=== PATIENT | male | born 1940 | race Caucasian/White ===

== ENCOUNTER → 2016-10-06 | Outpatient (CLI) | payer OTHER | LOC: FIMAGING 08:26 | PROVIDERS: ATTEND Internal Medicine | DX: J84.9 Interstitial pulmonary disease, unspecified (principal); R59.0 Localized enlarged lymph nodes; I70.0 Atherosclerosis of aorta; J42 Unspecified chronic bronchitis; Z87.891 Personal history of nicotine dependence ==

== ENCOUNTER 2018-07-23 15:00 | Inpatient (IN) | payer OTHER ==
--- NOTE | 2018-07-23 15:17 | EDPHY ---
H & P Stated Complaint: LLE edema and SOB Time Seen by Provider: 07/23/18 15:03 HPI/ROS: CHIEF COMPLAINT: Unilateral leg swelling, shortness of breath HISTORY OF PRESENT ILLNESS: This is a 78-year-old male who presents to the emergency department from his primary care physician office, Dr. Hugo, the primary complaint of hypoxemia and leg swelling. Patient reports that he has had swelling of his left lower extremity for the last 3-4 days. On arrival he seems to be in significant respiratory distress with an O2 sat of 74%. Patient reports that he has pulmonary fibrosis and uses oxygen at night. He states he has had gradually worsening shortness of breath over the last month after he was taken off 1 of his medications. it is a bit difficult to understand if he has had acute worsening of his shortness of breath; he says he is just anxious after being told go to the emergency department. Not anticoagulated except aspirin. No history of DVTs or PEs. No history of atrial fibrillation. Denies fevers or chills, denies chest pain, denies vomiting, diarrhea, urinary complaints, headache, or lightheadedness. Does report getting an influenza vaccination this season REVIEW OF SYSTEMS: The 10 system review of systems was reviewed and is otherwise negative aside from the elements mentioned in the history of present illness and decision making. Please note, review of systems is slightly limited secondary to the patient's clinical condition and significant respiratory distress. PAST MEDICAL HISTORY: Pulmonary fibrosis, uses oxygen at night. SOCIAL HISTORY: Belt Maker is Dr. Gamez, primary care physician Dr. Hugo. VITAL SIGNS Reviewed by me. 172/112, O2 sat 72% on room air with good waveform , respiratory rate 28 with accessory muscle use and retractions. Heart rate 97. Afebrile GENERAL: Thin gentleman, significant respiratory distress, 2-3 word dyspnea. HEENT: Atraumatic. Eyes: No icterus, no injection. Mouth: moist mucous membranes. No erythema or lesions. Neck: supple with no adenopathy. LUNGS: Crackles lower lobes bilaterally, significantly worse on the left with crackles and pleural rubs to the left upper lobe. CARDIAC: Regular rate and rhythm. ABDOMEN: Soft, nontender, nondistended, bowel sounds normal. BACK: No CVA tenderness. EXTREMITIES: No trauma. Left lower extremity: Nonpitting edema over the foot, ankle, lower calf. Range of motion is normal throughout. NEURO: Alert and oriented, grossly nonfocal. SKIN: Slightly cool to the touch, no rash. PSYCHIATRIC: Normal mentation, no agitation. - Medical/Surgical History Other PMH: Idiopathic pulmonary fibrosis, on home O2 at night Constitutional: Initial Vital Signs Temperature (C) 36.4 C 07/23/18 15:07 Heart Rate 97 07/23/18 15:07 Respiratory Rate 28 H 07/23/18 15:07 Blood Pressure 172/112 H 07/23/18 15:07 O2 Sat (%) 72 L 07/23/18 15:07 O2 Delivery Mode Nasal Cannula O2 (L/minute) 10 Allergies/Adverse Reactions: naproxen [From Naprosyn] Allergy (Verified 07/20/10 09:24) Home Medications: Medication Instructions Recorded METFORMIN HCL 500 mg PO BID 07/20/10 Aspirin EC [Aspirin EC 81 mg (*)] 81 mg PO HS 07/23/18 C/E/Zn/Cu/OM3/DHA/EPA/LUT/ZEAX 1 each PO BID 07/23/18 [Preservision Areds 2 Softgel] Lovastatin 40 mg PO HS 07/23/18 Multivitamins [Multivitamin (*)] 1 each PO DAILY 07/23/18 [place]-3 Fatty Acids [Fish Oil 1000 1,000 mg PO DAILY 07/23/18 mg (*)] Medical Decision Making - Diagnostics EKG Interpretation: 12-LEAD EKG: Please see the full report in [facility]. My interpretation: Sinus rhythm, T-wave inversions across the anterior leads, right ventricular hypertrophy. Imaging Results: CXR: Impression: Increased interstitial prominence, which could be related to interstitial lung disease or fluid overload superimposed on underlying emphysema, or other etiologies. CT chest is recommend for further evaluation. Dictated By: Darien Nur MD CT Chest for PE: Impression: 1. No evidence of acute pulmonary embolism with CT findings suggestive of pulmonary hypertension/ right heart failure. 2. Progression of interstitial lung disease in a distribution most suggestive of UIP. No evidence of superimposed airspace pneumonia. 3. Worsening of mediastinal lymphadenopathy which may be reactive, however underlying neoplasm cannot be radiographically excluded. Deya Zabala was notified of these findings by telephone at 5:11 PM on 2018. Dictated By: Ryan Singh MD ED Course/Re-evaluation: 78-year-old male presenting with increased O2 demands and shortness of breath along with unilateral leg swelling. Denies infectious symptomatology. Chest straight demonstrates underlying pulmonary fibrosis pattern with probable consolidation on the left lung field and questionable effusion. EKG: Sinus rhythm, T-wave inversion ST depression anteriorly. Bedside troponin 0.02. Lactic acid 5.0. Severe sepsis declared at 3:40 p.m.. Normal saline begun. Chest x-ray reading from Radiology: Increased interstitial pulmonary fibrosis with left lower lobe consolidation that may represent pneumonia. 4:15 p.m.: Patient's BNP is elevated at 5200. Patient has received a total of 1000 cc of fluid. Will stop fluid at this point while awaiting CT scan of the chest. Suspect a significant portion of the patient's lactic acidosis is secondary to hypoxemia and not to inadequate perfusion from decreased volume status. Repeat lactic acid: 1.9. CT scan of the chest demonstrates no pulmonary embolism and no pneumonia. Influenza negative. Respiratory pathogen panel pending at this time. Sepsis note: 78-year-old male who had presented with extreme hypoxia and chest x-ray demonstrating possible consolidation of the left lower lobe. Patient had not had symptoms of a fever. He did have white count of greater than 12,000 and lactic acid of 5.0. IV fluids were begun, however, patient did not receive a full 30 cc/kilos in light of his CT scan demonstrating no pneumonia and probable worsening pulmonary fibrosis as a cause of the patient's significant hypoxia. Patient's BNP is also elevated at 5200 and he has left lower extremity edema. I believe the patient's significant lactic acidosis was secondary to hypoxia and not secondary to infectious source. Patient did not receive antibiotics in the emergency department and again did not receive a full 30 cc/kilos bolus. Differential Diagnosis: Differential diagnosis for the patient's shortness of breath was considered including but not limited to pulmonary infectious processes, COPD exacerbation, worsening pulmonary fibrosis, pulmonary emboli, pulmonary edema, congestive heart failure, and cardiac causes. Differential diagnosis for the patient's leg swelling was considered including but not limited to cellulitis, hypoalbuminemia, congestive heart failure, cor pulmonale, chronic venous stasis and DVT. Consult/Admit Bed Type: Dr. Kern, [facility] Surg - Data Points Laboratory Results: Laboratory Results 07/23/18 15:15 07/23/18 15:15 Microbiology Results: MICROBIOLOGY 07/23/18 15:15 Blood Blood Culture - Preliminary 07/23/18 15:13 Blood Blood Culture - Preliminary Medications Given: Albuterol/Ipratropium (Duoneb) 3 ml IH Q6HRS [facility] Stop: 01/20/19 00:00 Last Admin: 07/25/18 14:46 Dose: 3 ml Aspirin Buffered (Aspirin Ec) 81 mg PO HS RAMILA Stop: 01/20/19 20:59 Last Admin: 07/24/18 20:11 Dose: 81 mg Enoxaparin Sodium (Lovenox) 40 mg SC DAILY RAMILA Stop: 01/20/19 11:59 Last Admin: 07/25/18 08:29 Dose: 40 mg Furosemide (Lasix Injection) 20 mg IVP BIDDIUR RAMILA Stop: 01/20/19 14:59 Last Admin: 07/25/18 15:09 Dose: 20 mg Levofloxacin/Dextrose (Levaquin 750 Mg (Premix)) 150 mls @ 100 mls/hr IV Q2D RAMILA PRN Reason: Protocol Stop: 08/22/18 18:59 Last Admin: 07/25/18 08:28 Dose: 150 mls Multivitamins/Minerals (Preservision Areds2 Formula) 1 each PO BID RAMILA Stop: 01/20/19 20:59 Last Admin: 07/25/18 08:30 Dose: 1 each Pravastatin Sodium (Pravachol) 40 mg PO HS [facility] Stop: 01/20/19 20:59 Last Admin: 07/24/18 20:11 Dose: 40 mg Discontinued Medications Furosemide (Lasix Injection) 20 mg IVP ONCE ONE Stop: 07/23/18 18:02 Last Admin: 07/23/18 18:31 Dose: 20 mg Sodium Chloride (Ns) 1,900 mls @ 3,800 mls/hr 30 ml/kg infuse over 30 min ( 1900 ml) IV EDNOW ONE PRN Reason: Protocol Stop: 07/23/18 16:07 Last Admin: 07/23/18 15:45 Dose: 1,900 mls Levofloxacin/Dextrose (Levaquin 750 Mg (Premix)) 150 mls @ 100 mls/hr IV DAILY RAMILA PRN Reason: Protocol Stop: 08/22/18 18:59 Last Admin: 07/23/18 19:19 Dose: 150 mls Methylprednisolone Sodium Succinate (Solu-Medrol) 125 mg IVP Q6HRS [facility]IL[facility] Stop: 01/19/19 18:14 Last Admin: 07/25/18 11:41 Dose: 125 mg Point of Care Test Results: Chemistry 07/23/18 15:27 POC Troponin I 0.02 ng/mL ng/mL (0.00-0.08) Departure - Departure Disposition: [facility] Inpatient Acute Condition: Fair
[2018-07-23 15:32] LABS: PLATELET COUNT 256 10^3/uL (150-400)
[2018-07-23] MEDS ORDERED: NS 1,900 ML IV ONE (15:38)
[2018-07-23 15:53] LABS: INR 1.05 (0.83-1.16); PROTIME(PATIENT) 13.3 SEC (12.0-15.0)
[2018-07-23] MEDS ORDERED: IOPAMIDOL (ISOVUE 370) 100 ML BTL IV ONE (15:54)
[2018-07-23] MEDS ORDERED: HYDROmorphONE/DILAUDID 1 MG/ML INJ IVP PRN (17:29)
[2018-07-23] MEDS ORDERED: oxyCODONE IR 5 MG TAB PO PRN (17:29)
[2018-07-23] MEDS ORDERED: ALBUTEROL 3 ML DEYVIAL IH PRN (17:29)
[2018-07-23] MEDS ORDERED: HYDROCODONE/APAP 5/325 TAB PO PRN (17:29)
[2018-07-23] MEDS ORDERED: ONDANSETRON DISINTEGRATING 4 MG TAB PO PRN (17:29)
[2018-07-23] MEDS ORDERED: ONDANSETRON 4 MG/2 ML VIAL IVP PRN (17:29)
[2018-07-23] MEDS ORDERED: ACETAMINOPHEN 325 MG TAB PO PRN (17:29)
[2018-07-23] MEDS ORDERED: PROMETHAZINE HCL 25 MG/ML INJ IVP PRN (17:29)
--- NOTE | 2018-07-23 17:42 | PDGENHP ---
History and Physical - Chief Complaint left leg swelling/sob - History of Present Illness 78 yo M with a PMH of IPF and COPD with chronic nocturnal hypoxia who presents from his PCPs office where he was being evaluated for new onset of left lower extremity swelling. He notes the leg has been swollen for a day or two, it is associated with some change in sensation but no pain or redness. The other leg feels fine. He notes he has also been experiencing progressive shortness of breath for at least the last couple of months. He typically uses oxygen only at night but recently has at times felt short of breath during the day and particularly with exertion and has been using 2-3L frequently during the day and very commonly when exerting himself. He has not had chest pain, fever, cough or increased sputum production. Upon reviewing patients outpatient reports with Dr. Gamez, I noted he had recently been switched from esbriet for his IPF to ofev as he was having loss of appetite attributed to esbriet. Patient states several people have asked him about this supposed new medication but states he was never told to start a new medication, and only discontinued esbriet without starting ofev. Upon arrival to the ER it was noted patient was hypoxic to 72% on RA, a chest CTA was negative for PE or PNA but did show signs of progressive ILD. History Information - Allergies/Home Medication List Allergies/Adverse Reactions: naproxen [From Naprosyn] Allergy (Verified 07/20/10 09:24) Home Medications: LOVASTATIN 80 mg PO DAILY 07/20/10 [Last Taken Unknown] METFORMIN HCL 500 mg PO BID 07/20/10 [Last Taken Unknown] Aspirin 81mg (*) 07/23/18 [Last Taken Unknown] I have personally reviewed and updated: family history, medical history, social history, surgical history - Past Medical History COPD, diabetes type 2 (with peripheral neuropathy), hyperlipidemia Additional medical history: interstitial pulmonary fibrosis--followed by [facility]. chronic nocturnal hypoxia - Surgical History Reports: no pertinent surgical hx - Family History Positive for: non-pertinent - Social History Smoking Status: Former smoker Alcohol Use: Rarely Drug Use: None Additional social history: lives independently Review of Systems Review of Systems: ROS: 10pt was reviewed & negative except for what was stated in HPI & below Physical Exam Physical Exam: Temp Pulse Resp BP Pulse Ox 36.4 C 76 20 163/102 H 99 07/23/18 15:07 07/23/18 17:10 07/23/18 17:10 07/23/18 17:10 07/23/18 17:10 O2 (L/minute) 10 Constitutional: chronically ill appearing, uncomfortable Eyes: PERRL, anicteric sclera Ears, Nose, Mouth, Throat: moist mucous membranes, hearing normal Cardiovascular: regular rate and rhythym, no murmur, rub, or gallop, edema (LLE 2+) Respiratory: reduced air movement, expiratory wheeze, inspiratory crackles, respiratory distress Gastrointestinal: normoactive bowel sounds, soft, non-tender abdomen Genitourinary: no bladder tenderness Skin: warm, normal color Musculoskeletal: no muscle tenderness Neurologic: AAOx3 Psychiatric: interacting appropriately, not anxious, not encephalopathic Lab Data & Imaging Review 07/23/18 15:15 07/23/18 15:15 WBC 12.81 10^3/uL (3.80-9.50) H 07/23/18 15:15 RBC 4.65 10^6/uL (4.40-6.38) 07/23/18 15:15 Hgb 13.5 g/dL (13.7-17.5) L 07/23/18 15:15 Hct 44.2 % (40.0-51.0) 07/23/18 15:15 MCV 95.1 fL (81.5-99.8) 07/23/18 15:15 MCH 29.0 pg (27.9-34.1) 07/23/18 15:15 MCHC 30.5 g/dL (32.4-36.7) L 07/23/18 15:15 RDW 14.6 % (11.5-15.2) 07/23/18 15:15 Plt Count 256 10^3/uL (150-400) 07/23/18 15:15 MPV 11.8 fL (8.7-11.7) H 07/23/18 15:15 Neut % (Auto) 76.3 % (39.3-74.2) H 07/23/18 15:15 Lymph % (Auto) 14.9 % (15.0-45.0) L 07/23/18 15:15 Smyth % (Auto) 7.3 % (4.5-13.0) 07/23/18 15:15 Eos % (Auto) 0.6 % (0.6-7.6) 07/23/18 15:15 Baso % (Auto) 0.4 % (0.3-1.7) 07/23/18 15:15 Nucleat RBC Rel Count 0.0 % (0.0-0.2) 07/23/18 15:15 Absolute Neuts (auto) 9.78 10^3/uL (1.70-6.50) H 07/23/18 15:15 Absolute Lymphs (auto) 1.91 10^3/uL (1.00-3.00) 07/23/18 15:15 Absolute Monos (auto) 0.93 10^3/uL (0.30-0.80) H 07/23/18 15:15 Absolute Eos (auto) 0.08 10^3/uL (0.03-0.40) 07/23/18 15:15 Absolute Basos (auto) 0.05 10^3/uL (0.02-0.10) 07/23/18 15:15 Absolute Nucleated RBC 0.00 10^3/uL (0-0.01) 07/23/18 15:15 Immature Gran % 0.5 % (0.0-1.1) 07/23/18 15:15 Immature Gran # 0.06 10^3/uL (0.00-0.10) 07/23/18 15:15 PT 13.3 SEC (12.0-15.0) 07/23/18 15:15 INR 1.05 (0.83-1.16) 07/23/18 15:15 APTT 28.1 SEC (23.0-38.0) 07/23/18 15:15 D-Dimer 2.30 ug/mLFEU (0.00-0.50) H 07/23/18 15:15 VBG Lactic Acid 1.9 mmol/L (0.7-2.1) 07/23/18 16:25 Sodium 138 mEq/L (135-145) 07/23/18 15:15 Potassium 5.4 mEq/L (3.5-5.2) H 07/23/18 15:15 Chloride 105 mEq/L (97-110) 07/23/18 15:15 Carbon Dioxide 19 mEq/l (22-31) L 07/23/18 15:15 Anion Gap 14 mEq/L (6-14) 07/23/18 15:15 BUN 26 mg/dL (7-23) H 07/23/18 15:15 Creatinine 1.2 mg/dL (0.7-1.3) 07/23/18 15:15 Estimated GFR 59 07/23/18 15:15 Glucose 114 mg/dL (70-100) H 07/23/18 15:15 Calcium 8.9 mg/dL (8.5-10.4) 07/23/18 15:15 Total Bilirubin 1.2 mg/dL (0.1-1.4) 07/23/18 15:15 POC Troponin I 0.02 ng/mL (0.00-0.08) 07/23/18 15:27 NT-Pro-B Natriuret Pep 5820 pg/mL (0-450) H 07/23/18 15:15 Nasal Influenza A PCR NEGATIVE FOR FLU A (NEGATIVE) 07/23/18 15:40 Nasal Influenza B PCR NEGATIVE FOR FLU B (NEGATIVE) 07/23/18 15:40 Visualized and Interpreted Chest x-ray results: Yes Chest X-Ray results: other (worsening ILD) Visualized and Interpreted imaging results: Yes Interpretation: CTA: no PE/ no PNA, worsening interstitial lung disease, worsening lymphadenopathy Visualized and Interpreted EKG results: Yes EKG Interpretation: Positive for: normal sinsus rhythm, ST depression ( secondary repol abnormality) Assessment & Plan Assessment: Acute respiratory failure (Acute) 78 yo m with hx of COPD, IPF and chronic hypoxic respiratory failure presenting with LLE edema and acute on chronic respiratory failure # acute on chronic hypoxic respiratory failure: presenting with o2 sats of 72% on RA and associated respiratory distress, improved to high 90s now on 10L oxymask. CT without PE or clear e/o PNA but does appear to have worsening ILD. Discussed with patients outpatient pulmonary physician, Dr. Gamez, who recommends treating with lasix and steroids for tonight, and looking for other etiologies as below. Resp PCR pending, blood cultures pending # IPF: patient has inadvertently been off of medications since May (esbriet discontinued but patient did not start ofev as planned, discussed with pulmonary who thinks this is unlikely to be contributing as disease progression with this is typically slow and meds are only initiated in order to further slow progression. He recommends holding off on initiation of ofev until discharge. # copd: suspect component of acute exacerbation contributing, steroids, duonebs shruthi and albuterol prn as well as abx initiated # lower extremity edema: asymmetric, will get LLE US, echo in am given elevated BNP and 1 dose of lasix tonight as above # ? bronchopneumonia: no e/o airspace pna on CT but difficult to exclude bronchopneumonia given concurrent SIRS/sepsis as next--blood cultures pending, will start levofloxacin for now # sirs/? sepsis: patient with mildly elevated wbc and tachypnea on arrival, lactate drawn in ER and elevated at 5 (down to 1.9 post fluid)--given his sxs and presentation suspicion is that elevated lactate is not related to sepsis but more likely volume depletion but will start abx for now, check prolactin, repeat cbc in am, cultures and resp pcr pending. HD stable with BP slightly high. # DM2: will start SSI # abnormal ecg: not clearly ischemic, no olds to compare, no c/o chest pain, monitoring on tele, serial trops # IP status, will likely require > 48 hours stay for eval/mgmt of above Patient new to my care. Old records reviewed and summarized as above. Care plan reviewed with ER doctor and pulmonary MD as above.
[2018-07-23] MEDS ORDERED: FUROSEMIDE 20 MG/2 ML VIAL IVP ONE (18:01)
[2018-07-23] MEDS ORDERED: FUROSEMIDE 20 MG/2 ML VIAL ONE (18:23)
[2018-07-23] MEDS ORDERED: methylPREDNISolone SOD SUCC 125 MG/2 ML VIAL ONE (18:28)
[2018-07-23] MEDS: methylPREDNISolone SOD SUCC 125 MG/2 ML VIAL IVP SCH (18:29)
[2018-07-23] MEDS ORDERED: levOFLOXACIN 500 MG/DEXTROSE/100 ML BAG IV ONE (19:15)
[2018-07-23] MEDS ORDERED: levOFLOXACIN 750 MG/DEXTROSE/150 ML BAG IV ONE (19:18)
[2018-07-23] MEDS: IPRATROPIUM/ALBUTEROL 3 ML DEYVIAL IH SCH (23:49)
--- NOTE | 2018-07-23 23:56 | CPEKG ---
Test Reason : OPEN Blood Pressure : / mmHG Vent. Rate : 082 BPM Atrial Rate : 082 BPM P-R Int : 181 ms QRS Dur : 106 ms QT Int : 406 ms P-R-T Axes : 060 117 -59 degrees QTc Int : 475 ms Sinus rhythm Probable left atrial enlargement Probable RVH w/ secondary repol abnormality Confirmed by Deya Zabala ([id number]) on 07/23/2018 11:55:58 PM Referred By: Deya Zabala Confirmed By:Deya Zabala
[2018-07-24] MEDS: methylPREDNISolone SOD SUCC 125 MG/2 ML VIAL IVP SCH ×4 (00:47→17:58)
[2018-07-24 04:53] LABS: PLATELET COUNT 168 10^3/uL (150-400)
[2018-07-24] MEDS: IPRATROPIUM/ALBUTEROL 3 ML DEYVIAL IH SCH ×4 (05:22→23:09)
[2018-07-24] MEDS ORDERED: guaiFENesin/CODEINE PHOS 10 ML UDCUP PO PRN (10:48)
--- NOTE | 2018-07-24 12:29 | ASMTCMCOM ---
CM Note CM Note Notes: Pt was admitted with hypoxia, possible CHF, Anastasia CARTER. PT/OT evals pending. Cardiology following. Pt lives with his in [place]. CM will follow for any d/c needs. D/C plan: TBD Date Signed: 07/24/2018 12:29 PM Electronically Signed By:YANE Cage
[2018-07-24] MEDS: ENOXAPARIN 40 MG/0.4 ML SYR SC SCH (12:56)
[2018-07-24] MEDS: FUROSEMIDE 20 MG/2 ML VIAL IVP SCH (14:24)
--- NOTE | 2018-07-24 15:21 | HOSPPROG ---
Hospitalist Progress Note Assessment/Plan: * Acute on Chronic respiratory failure -acute IFP flare vs. other (PNA vs. CHF) -was 85% on 10L, now holding good sats on 5L * IPF - possible acute flare -IV solumedrol -off Esbriet, did not start Ofev as recommended -d/w Dr. Dias - pulmonary to consult * COPD exacerbations -steroids, nebs * Acute on chronic diastolic CHF -IV lasix * Possible PNA -Levaquin * Elevated lactate -may have been due to hypoxia * DM II Subjective: Still SOB, severe cough is most bothersome Objective: Vital Signs Temp Pulse Resp BP Pulse Ox 36.3 C 76 20 121/72 H 96 07/24/18 14:57 07/24/18 14:57 07/24/18 14:57 07/24/18 14:57 07/24/18 14:57 Laboratory Results 07/24/18 03:05 07/24/18 03:05 07/23/18 07/24/18 07/25/18 05:59 05:59 05:59 Intake Total 2900 450 Output Total 575 550 Balance 2325 -100 PT 13.3 SEC (12.0-15.0) 07/23/18 15:15 INR 1.05 (0.83-1.16) 07/23/18 15:15 CT chest reviewed - looks like progression of IPF CXR viewed, my personal interpretation is - bilateral infiltrate L>R - Physical Exam Constitutional: appears nourished, not in pain, chronically ill appearing, other (on face mask) Cardiovascular: regular rate and rhythym, no murmur, rub, or gallop Respiratory: inspiratory crackles, No expiratory wheeze, No rhonchi Gastrointestinal: normoactive bowel sounds, soft, non-tender abdomen, no palpable masses Skin: no rashes or abrasions, no fluctuance, no induration Neurologic: AAOx3, sensation intact bilaterally Psychiatric: interacting appropriately, not anxious, not encephalopathic, thought process linear ICD10 Worksheet Patient Problems: Problems Problem Status Onset Acute respiratory failure Acute
--- NOTE | 2018-07-24 15:23 | PDMN ---
Medical Necessity Medical necessity: Pt meets IP criteria per MD & MCG PG-RF Respiratory Failure; est los >2 mn for eval/tx of acute on chronic hypoxic respiratory failure (72% on RA), LLE edema, abnormal ECG, elevated lactate & BNP r/t possible CHF, sepsis /SIRS or bronchopneumonia; requiring further workup/monitoring, respiratory supportive care, IV Lasix, IV Solu-Medrol & IV abx; hx COPD, diabetes, pulmonary fibrosis; per H&P & order 07/23/18
[2018-07-24] MEDS: PRESERVISION AREDS2 FORMULA EYE VIT 1 EACH PO SCH (20:11)
[2018-07-24] MEDS: ASPIRIN EC 81 MG TAB PO SCH (20:11)
[2018-07-24] MEDS: PRAVASTATIN SODIUM 40 MG TAB PO SCH (20:11)
[2018-07-25] MEDS: methylPREDNISolone SOD SUCC 125 MG/2 ML VIAL IVP SCH ×3 (00:01→11:41)
[2018-07-25] MEDS: IPRATROPIUM/ALBUTEROL 3 ML DEYVIAL IH SCH ×4 (05:13→20:28)
[2018-07-25] MEDS: FUROSEMIDE 20 MG/2 ML VIAL IVP SCH ×2 (08:29→15:09)
[2018-07-25] MEDS: ENOXAPARIN 40 MG/0.4 ML SYR SC SCH (08:29)
[2018-07-25] MEDS: PRESERVISION AREDS2 FORMULA EYE VIT 1 EACH PO SCH ×2 (08:30→21:22)
--- NOTE | 2018-07-25 12:44 | ASMTCMCOM ---
CM Note CM Note Notes: 07/25/2018 Case Management Note Met w/pt and Precious [phone] and stepdaughter Jo to discuss d/c needs. PT recommending home care. Pt agreeable. Provided home care agency list. Pt requested [facility]. Notified [facility] on phone and allscripts. Transitional Care to follow pt. Case Management d/c poc: [facility] RN PT Case Management to follow. Date Signed: 07/25/2018 12:44 PM Electronically Signed By:Vanessa rOo RN
--- NOTE | 2018-07-25 13:31 | HOSPPROG ---
Hospitalist Progress Note Assessment/Plan: * Acute on Chronic respiratory failure -acute IFP flare vs. other (PNA vs. CHF) -was 85% on 10L, now improving * IPF - possible acute flare -change to Prednisone -off Esbriet, did not start Ofev as recommended -d/w Dr. Dias - pulmonary to consult * COPD exacerbations -steroids, nebs * Acute on chronic diastolic CHF -IV lasix * Possible PNA -Levaquin * Elevated lactate -may have been due to hypoxia * DM II Plan: cont diuretics cont abx for now, check pc change IV steroids to PO Lovenox for DVT proph Subjective: no cp. still with some sob but better. edema has improved Objective: Vital Signs Temp Pulse Resp BP Pulse Ox 35.9 C L 86 22 H 115/68 93 07/25/18 11:20 07/25/18 11:20 07/25/18 11:20 07/25/18 11:20 07/25/18 11:20 Laboratory Results 07/24/18 03:05 07/25/18 03:08 07/24/18 07/25/18 07/26/18 05:59 05:59 05:59 Intake Total 2900 1520 Output Total 575 1850 875 Balance 2325 -330 -875 PT 13.3 SEC (12.0-15.0) 07/23/18 15:15 INR 1.05 (0.83-1.16) 07/23/18 15:15 - Physical Exam Constitutional: no apparent distress Eyes: PERRL, EOMI Ears, Nose, Mouth, Throat: moist mucous membranes, hearing normal Cardiovascular: regular rate and rhythym, No edema Respiratory: reduced air movement, rhonchi Gastrointestinal: normoactive bowel sounds, soft, non-tender abdomen Skin: warm Musculoskeletal: generalized weakness Neurologic: AAOx3 Psychiatric: interacting appropriately, not anxious, not encephalopathic Lymph, Heme, Immunologic: No petechiae ICD10 Worksheet Patient Problems: Problems Problem Status Onset Acute respiratory failure Acute Chronic Disease Mgmt/Transitional care Acute
--- NOTE | 2018-07-25 15:37 | ECHO ---
[email or web address] [address] [address] Main: [phone] Echocardiography Examination Transthoracic Name: ALIRIO CRANDALL MR#: [id number] Study Date: 07/24/2018 Study Time: 10:02 AM Date of : 1940 Age: 78 year(s) Height: 177.8 cm (70 in.) Weight: 64.41 kg (142 lb.) BSA: 1.8 m2 Gender: Male Examination: Echo Indication: CHF, elevated BNP Image Quality: Contrast: Requested by: Destiny Guerrier BP: 156 mmHg/89 mmHg Heart Rate: 76 bpm Rhythm: Indication: CHF, elevated BNP Procedure Staff Referring Physician: Casing Cooker: Sohail Melissa RDCS Reading Physician: John Jones MD Requesting Provider: Ordering Physician: Destiny Guerrier Indication: CHF, elevated BNP Measurements Chambers AV/MV Label Value Normal Value Label Value Normal Value IVSd, 2D 1.3 cm (0.6cm - 1.1cm) AV Opening, MM 1.6 cm LVDd, 2D 4.1 cm (4.2cm - 5.9cm) AV PGmax 5 mmHg LVDs, 2D 2.6 cm (2.1cm - 4cm) AV Vmax, Caliper 1.15 m/s (1m/s - 1.7m/s) LVEF, 2D 67 % (54% - 74%) MV A Vmax 0.96 m/s LVOT PGmax 3 mmHg MV E' lateral 0.06 m/s LVOT Vmax 0.85 m/s (0.7m/s - 1.1m/s) MV E' mean 0.06 m/s LVPWd, 2D 1.1 cm (0.6cm - 1cm) MV E' septal 0.05 m/s RVDd, 2D 6.2 cm (1.9cm - 3.8cm) MV E Vmax 0.56 m/s TAPSE 1.9 cm MV E/A 0.58 LA Area, A2C 18.2 cm2 (0cm2 - 20cm2) MV E/E' lateral 8.8 LA Volume, A2C 47 ml (18ml - 58ml) MV E/E' mean 10.18 RA Area 39 cm2 MV E/E' septal 12.2 (0.45 - 1.25) Additional Vessels TV/PV Label Value Normal Value Label Value Normal Value AoRoot, MM 3.1 cm (2.2cm - 3.7cm) RA Pressure 10 mmHg RVSP 64 mmHg TR Pmax 54 mmHg TR Vmax 3.69 m/s Patient: ALIRIO CRANDALL Study Date: 07/24/2018 Page 1 of 2 10:02 AM Conclusions Left ventricle is normal in size with preserved left ventricular systolic function. There are no ischemic appearing wall motion abnormalities. The interventricular septum is "D" shaped in systole consistent with right ventricular pressure overload. The right ventricle is severely dilated with severely reduced RV systolic function. The right atrium is severely dilated. Valvular morphology is normal. There is moderate tricuspid regurgitation with a moderately elevated estimated RVSP at 64 mmHg. Findings Left Ventricle: Normal global systolic left ventricular function. There is mild concentric left ventricular hypertrophy. There is no regional wall motion abnormalities. Doppler parameters are consistent with abnormal left ventricular relaxation (Grade 1 diastolic dysfunction). Right Ventricle: Severely dilated right ventricle. There is abnormal septal motion with diastolic flattening suggestive of RV volume/pressure overload. . Left Atrium: The left atrium is normal in size. Right Atrium: The right atrium is severely dilated. Mitral Valve: No mitral regurgitation. No mitral valve stenosis. Aortic Valve: No aortic valve regurgitation. There is no aortic stenosis. Tricuspid Valve: Moderate to severe tricuspid regurgitation. Tricuspid Valve Measurements Right Ventricular systolic pressure is measured at 64 mmHg. Pulmonic Valve: No significant pulmonic valve regurgitation is evident. Aorta: The aortic root size in M-mode measures 3.1 cm. Aorta Measurements AoRoot, MM is 3.1 cm. Pericardium: No pericardial effusion. Exam Details Procedure Ordered: Echo (No Signature Object) Patient: ALIRIO CRANDALL Study Date: 07/24/2018 Page 2 of 2 10:02 AM [id number]
--- NOTE | 2018-07-25 16:52 | SOAPPROG ---
SOAP Progress Note Assessment/Plan: Assessment: Interstitial lung disease. Presumably IPF. Clear worsening on CT scan compared to 2017. Spirometry is down but only by 450 cc. Pirfenidone was stopped mid May secondary to weight loss and GI side effects. OFEV was not started (hard drug to start, need to work with drug company and insurance, need prior approval, etc.). Steroids may be of benefit. Got Solu-Medrol on an admission. Will start prednisone. COPD. Presumably he has this along with some emphysema in addition to honeycombing from ILD. However, this is difficult to document and on his pulmonary function studies in January he had no obstruction and no reversibility. A COPD exacerbation could be playing a role. On bronchodilator therapies. These will be continued. Prednisone for ILD may have benefit as well for the COPD. Hypoxemia/dyspnea. Secondary to issues as outlined above. Type 2 diabetes. On metformin. Glucoses may become significantly worse with prednisone. Will follow. Edema: Improved Lasix. No evidence of DVT. Secondary pulmonary hypertension may be playing a role. Plan: Start prednisone at 60 mg per day. Continue duo nebs. Switch levofloxacin to oral. Continue lasix for now but likely go to lower dose orally tomorrow. Will check cardiac echo for right heart function and pressures. Continue ambulation and bronchopulmonary therapies. Follow laboratory. Subjective: Feels better. Less short of breath. Denies pain. Still notes desaturations with ambulation. Objective: Vital Signs Temp Pulse Resp BP Pulse Ox 36.1 C 85 22 H 123/74 H 91 L 07/25/18 15:43 07/25/18 15:43 07/25/18 15:43 07/25/18 15:43 07/25/18 15:43 Laboratory Results 07/24/18 03:05 07/25/18 03:08 07/24/18 07/25/18 07/26/18 05:59 05:59 05:59 Intake Total 2900 1520 860 Output Total 575 7510 1475 Balance 2325 -330 -615 PT 13.3 SEC (12.0-15.0) 07/23/18 15:15 INR 1.05 (0.83-1.16) 07/23/18 15:15 Forced vital capacity today: 2.55 L. In January 2018 this was 3.0 L. FEV1 down as well. Physical Exam - Physical Exam General Appearance: alert, no apparent distress, thin EENT: PERRL/EOMI, other (Nasal cannula in place at 4 L) Neck: normal inspection (No JVD) Respiratory: decreased breath sounds, rales (Bibasilar rales persist, no change) , No rhonchi, No wheezing Cardiac/Chest: regular rate, rhythm, No gallop Abdomen: normal bowel sounds, non-tender, soft Skin: normal color, warm/dry Extremities: pedal edema (Trace +, left greater than right) Neuro/Psych: no motor/sensory deficits, No cognition abnormalities ICD10 Worksheet Patient Problems: Problems Problem Status Onset Acute respiratory failure Acute Chronic Disease Mgmt/Transitional care Acute
[2018-07-25] MEDS: predniSONE 20 MG TAB PO SCH (17:10)
--- NOTE | 2018-07-25 18:08 | GCON ---
[f rep st] CONSULTATION PULMONARY CONSULTATION DATE OF CONSULTATION: 07/25/2018 REASON FOR CONSULTATION: Dyspnea, hypoxemia, ILD/IPF, COPD. HISTORY: The patient is a very pleasant 78-year-old gentleman who is known to our office. He is followed by Dr. Gamez for COPD and idiopathic pulmonary fibrosis. He was last seen on June 05. He was doing relatively well at that time. Room air saturations at rest were reportedly 90%. He had lost weight associated with treatment for his IPF with pirfenidone. This was stopped. Nintedanib (Ofev) was ordered but he has not started this. His last pulmonary function studies were done in January of 2018. Vital capacity was 2.97, 67% of predicted, with an FEV1 of 2.29 L, 69% of predicted. The ratio was 77%. There was no response to bronchodilator. FRC was normal, DLCO low normal at 84% of predicted. This was felt to be consistent with moderate restrictive disease associated with his IPF. Over a number of days prior to this admission on 07/23, he had been increasingly short of breath during the day and had been using oxygen during the day more than he had in the past. He had no wheezing, fevers, cough, or mucus. He presented to his primary care physician with increased lower extremity edema. He was found to be hypoxemic. It was recommended that he come to the emergency department for evaluation. Ultrasound of the lower extremity was negative. A CTA was negative for thromboembolic disease. There was no evidence of pneumonia. Compared to a 2017 CT, his idiopathic pulmonary fibrosis had progressed. He was admitted to the PCU. He has been treated with oxygen at 5-6 L. He is receiving Lasix 20 mg b.i.d., empiric Levaquin. He is not currently on steroids. He did receive Solu-Medrol for a few doses initially in his hospital course. PAST MEDICAL HISTORY: Remarkable for type 2 diabetes and hyperlipidemia, COPD secondary to previous smoking. He may have a component of emphysema as well. SOCIAL HISTORY: I believe the patient is , lives independently. He was a previous smoker. Alcohol is negative. FAMILY HISTORY: Negative/noncontributory. REVIEW OF SYSTEMS: A 10-point review of systems is negative except as noted in the HPI and Past Medical History. PHYSICAL EXAMINATION: GENERAL: Reveals a thin gentleman who is sitting up in the chair, oxygen in place. He is in no distress. Oxygen is in place at 5 L. Saturations are in the low 90s. HEENT: Unremarkable for lymphadenopathy or thyromegaly. There is no jugular venous distention. CHEST: Reveals decreased breath sounds and excursions bilaterally. Bilateral rales are present. There are no significant wheezes. There is no congestion, no rhonchi. HEART: Regular in rate and rhythm. A soft systolic murmur is present. There are no obvious gallops. P2 is increased. ABDOMEN: Soft, nontender. Bowel sounds are present. There is no organomegaly. EXTREMITIES: Remarkable for trace/plus edema on the right, 1+ edema on the left. Compression stockings are in place. NEUROLOGIC: Unremarkable/normal. DATABASE: CT scan of the chest is as outlined above, showing progressive interstitial lung disease with honeycombing and fibrosis. A component of emphysema appears to be present. LABORATORY: White blood cell count is 3600, hematocrit 38, platelets are normal. PT and PTT are normal. Venous lactate on admission was 5, repeat 1.9. Sodium is 135, potassium 4.5, BUN 31, with a creatinine 1.1, glucose 159, calcium 8.1. Liver function studies are normal. Troponins have been negative. BNP is elevated at 5280. Influenza A/B negative. Respiratory panel is negative. Blood cultures are negative to date. ASSESSMENT/PLAN: 1. Shortness of breath. Increased oxygen requirements. This does appear to be secondary to the patient's underlying idiopathic pulmonary fibrosis. This has been progressive over the last couple years despite therapy with pirfenidone. This was recently discontinued, and he has been started on nintedanib. Both these drugs, although acting differently, do the same thing in that they slow, but do not stop, the progression of idiopathic pulmonary fibrosis. Pirfenidone is often associated with gastrointestinal side affects. Nintedanib can be as well and could be problematic if he starts this. The patient was given Solu- Medrol initially during this hospitalization. It is unclear if this had any benefit. It would seem to be reasonable to continue a short course of steroids for now to see if this results in improvement in his hypoxemia and dyspnea. Levaquin was started. There is no definite evidence of a respiratory infection, however, 5 days will be completed. This can be changed to oral. 2. Peripheral edema. The patient did present with increasing lower extremity edema, left greater than right. There is no evidence of deep vein thrombosis or pulmonary embolic disease. This may be related to right heart dysfunction and elevated right ventricular systolic pressures. A cardiac echo will be obtained. 3. Chronic obstructive pulmonary disease. The patient did smoke cigarettes in the past and likely does have a component of chronic obstructive pulmonary disease and emphysema. However, this is difficult to document by pulmonary function testing at this time as his interstitial lung disease is more predominant. Albuterol will be continued. Current therapies will be continued. Steroids, prednisone at 60 mg, will be added to his regimen for now. Lasix will be continued. Levaquin will be continued, but changed to oral. Spirometry will be requested. Cardiac echo will be obtained. Further plans and recommendations will be made based on his progress over the next 24 to 48 hours. /[id number]/MODL MTDD
[2018-07-25] MEDS: PRAVASTATIN SODIUM 40 MG TAB PO SCH (21:22)
[2018-07-25] MEDS: ASPIRIN EC 81 MG TAB PO SCH (21:22)
[2018-07-26 04:31] LABS: PLATELET COUNT 162 10^3/uL (150-400)
[2018-07-26] MEDS: IPRATROPIUM/ALBUTEROL 3 ML DEYVIAL IH SCH ×4 (05:44→20:13)
[2018-07-26] MEDS: ENOXAPARIN 40 MG/0.4 ML SYR SC SCH (09:02)
[2018-07-26] MEDS: FUROSEMIDE 20 MG/2 ML VIAL IVP SCH ×2 (09:02→14:25)
[2018-07-26] MEDS: predniSONE 20 MG TAB PO SCH (09:03)
[2018-07-26] MEDS: PRESERVISION AREDS2 FORMULA EYE VIT 1 EACH PO SCH ×2 (09:03→19:53)
[2018-07-26] MEDS ORDERED: D50W 25 GM/50 ML SYR IVP PRN (09:49)
[2018-07-26] MEDS: INSULIN LISPRO 100 UNIT/ML SC SCH ×2 (12:12→17:16)
--- NOTE | 2018-07-26 15:21 | HOSPPROG ---
Hospitalist Progress Note Assessment/Plan: * Acute on Chronic respiratory failure -acute IFP flare vs. other (PNA vs. CHF) -was 85% on 10L, now improving * IPF - possible acute flare -Prednisone -off Esbriet, did not start Ofev as recommended -d/w Dr. Dias - pulmonary is following * COPD exacerbation -steroids, nebs * Acute on chronic diastolic CHF -IV lasix, holding per below * Possible PNA -Levaquin to be stopped today * Elevated lactate -may have been due to hypoxia * DM II Plan: He has received 2 doses of IV diuretics today. Volume status appears better. BUN has increased. Will hold further diuretics are determine need for additional in the a.m. Will stop abx, PC noted to be negative cont PO steroids at Prednisone 60mg daily Lovenox for DVT proph Subjective: feels better, but still with LERMA. Still on 4-5 Liters O2 Objective: Vital Signs Temp Pulse Resp BP Pulse Ox 36.4 C 74 17 144/89 H 89 L 07/26/18 11:55 07/26/18 11:55 07/26/18 11:55 07/26/18 11:55 07/26/18 13:15 Laboratory Results 07/26/18 03:02 07/26/18 03:02 07/25/18 07/26/18 07/27/18 05:59 05:59 05:59 Intake Total 1520 1110 360 Output Total 1850 1955 1800 Balance -330 -845 -1440 PT 13.3 SEC (12.0-15.0) 07/23/18 15:15 INR 1.05 (0.83-1.16) 07/23/18 15:15 - Physical Exam Constitutional: no apparent distress Eyes: PERRL, EOMI Ears, Nose, Mouth, Throat: moist mucous membranes, hearing normal Cardiovascular: regular rate and rhythym, No edema Respiratory: no respiratory distress, reduced air movement Gastrointestinal: normoactive bowel sounds, soft, non-tender abdomen Skin: warm Neurologic: AAOx3 Psychiatric: interacting appropriately, not anxious, not encephalopathic Lymph, Heme, Immunologic: No petechiae ICD10 Worksheet Patient Problems: Problems Problem Status Onset Acute respiratory failure Acute Chronic Disease Mgmt/Transitional care Acute
--- NOTE | 2018-07-26 18:47 | SOAPPROG ---
SOAP Progress Note Assessment/Plan: Assessment: Interstitial lung disease. Presumably IPF. Clear worsening on CT scan compared to 2017. Spirometry is down but only by 450 cc. Pirfenidone was stopped mid May secondary to weight loss and GI side effects. OFEV was not started (hard drug to start, need to work with drug company and insurance, need prior approval, etc.). Steroids may be of benefit, prednisone at 60 started 07/25. Got Solu-Medrol on an admission. COPD. Presumably he has this along with some emphysema in addition to honeycombing from ILD. However, this is difficult to document and on his pulmonary function studies in January he had no obstruction and no reversibility. A COPD exacerbation could be playing a role. On bronchodilator therapies. These will be continued. Prednisone for ILD may have benefit as well for his COPD. Pulmonary hypertension with right ventricular dysfunction. This is secondary to his underlying pulmonary disease. Right ventricular systolic pressure at 65. This certainly is playing a role in his increasing dyspnea as well. Maintaining oxygen saturations 88% or above is indicated. There is no evidence of pulmonary embolic disease on CTA this admission. Hypoxemia/dyspnea. Secondary to issues as outlined above. Type 2 diabetes. On metformin. Glucoses stable so far on steroids. Edema: Improved with Lasix. No evidence of DVT. Secondary pulmonary hypertension certainly playing a role in edema as well. Plan: Continue prednisone at 60 mg per day. Continue oxygen at rest and with sleep and exertion. Continue duo nebs. Switch levofloxacin for a 5-7 day total course. Continue lasix at 20 mg orally per day. Continue ambulation and bronchopulmonary therapies. Follow laboratory. Will continue to follow. Anticipate discharge possibly on Monday for outpatient follow-up with Dr. Gamez. Subjective: Feels better. Thinks he is less short of breath. Does have a dry cough, no mucus or wheezing Objective: Vital Signs Temp Pulse Resp BP Pulse Ox 35.9 C L 77 19 122/71 H 94 07/26/18 16:00 07/26/18 16:00 07/26/18 16:00 07/26/18 16:00 07/26/18 16:00 Laboratory Results 07/26/18 03:02 07/26/18 03:02 07/25/18 07/26/18 07/27/18 05:59 05:59 05:59 Intake Total 1520 1110 1020 Output Total 1850 5 4889 Balance -330 -845 -1530 PT 13.3 SEC (12.0-15.0) 07/23/18 15:15 INR 1.05 (0.83-1.16) 07/23/18 15:15 Laboratory Tests 07/26/18 07/26/18 07/26/18 03:02 11:54 17:12 POC Glucose 64 L 130 H Calcium 8.4 L NT-Pro-B Natriuret Pep 4500 H Procalcitonin 0.04 Cardiac echo: Dilated right atrium and right ventricle. Estimated right ventricular systolic pressures approximately 65, consistent with relatively severe pulmonary hypertension. Mild diastolic dysfunction present. Physical Exam - Physical Exam General Appearance: alert, no apparent distress, other (Up in chair, comfortable. On nasal cannula oxygen at 4 L) Neck: normal inspection (JVD present) Respiratory: lungs clear (Anteriorly), decreased breath sounds (Bilaterally), rales (Rales present at the bases, left more so than right), No rhonchi, No wheezing Cardiac/Chest: regular rate, rhythm, systolic murmur, other (P2 increased), No gallop Abdomen: normal bowel sounds, non-tender, soft Skin: normal color, warm/dry Extremities: pedal edema (Trace +) Neuro/Psych: no motor/sensory deficits, No cognition abnormalities ICD10 Worksheet Patient Problems: Problems Problem Status Onset Chronic Disease Mgmt/Transitional care Acute Acute respiratory failure Acute
[2018-07-26] MEDS: PRAVASTATIN SODIUM 40 MG TAB PO SCH (19:53)
[2018-07-26] MEDS: ASPIRIN EC 81 MG TAB PO SCH (19:53)
[2018-07-27] MEDS: IPRATROPIUM/ALBUTEROL 3 ML DEYVIAL IH SCH ×4 (05:15→20:26)
[2018-07-27] MEDS: INSULIN LISPRO 100 UNIT/ML SC SCH ×3 (07:48→17:29)
[2018-07-27] MEDS: PRESERVISION AREDS2 FORMULA EYE VIT 1 EACH PO SCH ×2 (07:48→20:05)
[2018-07-27] MEDS: ENOXAPARIN 40 MG/0.4 ML SYR SC SCH (07:48)
[2018-07-27] MEDS: predniSONE 20 MG TAB PO SCH (07:48)
[2018-07-27] MEDS ORDERED: FUROSEMIDE 20 MG TAB PO SCH (09:00)
[2018-07-27] MEDS ORDERED: FUROSEMIDE 20 MG TAB PO ONE (10:15)
[2018-07-27 10:47] LABS: PLATELET COUNT 163 10^3/uL (150-400)
--- NOTE | 2018-07-27 16:19 | HOSPPROG ---
Hospitalist Progress Note Assessment/Plan: * Acute on Chronic respiratory failure -acute IFP flare vs. other (PNA vs. CHF) -was 85% on 10L on admission, now improving * IPF - possible acute flare -Prednisone. would taper instead of burst -off Esbriet, did not start Ofev as recommended -d/w Dr. Dias - pulmonary is following * COPD exacerbation -steroids, nebs * Acute on chronic diastolic CHF -now on PO Lasix * Possible PNA -Levaquin stopped on 07/26 * Elevated lactate -may have been due to hypoxia * DM II Plan: Lasix 40mg daily Prednisone at current dose CXR reviewed today, improving He has received 2 doses of IV diuretics today. Volume status appears better. BUN has increased. Will hold further diuretics are determine need for additional in the a.m. Will stop abx, PC noted to be negative cont PO steroids at Prednisone 60mg daily Lovenox for DVT proph Subjective: still with intermittent sob. no n/v. no leg swelling. on 5-7 liters O2 Objective: Vital Signs Temp Pulse Resp BP Pulse Ox 36.4 C 80 20 144/89 H 89 L 07/27/18 16:00 07/27/18 16:00 07/27/18 16:00 07/27/18 16:00 07/27/18 16:00 Laboratory Results 07/27/18 10:40 07/27/18 03:02 07/26/18 07/27/18 07/28/18 05:59 05:59 05:59 Intake Total 1110 1240 500 Output Total 1955 3500 575 Balance -845 -2260 -75 PT 13.3 SEC (12.0-15.0) 07/23/18 15:15 INR 1.05 (0.83-1.16) 07/23/18 15:15 - Physical Exam Constitutional: no apparent distress, chronically ill appearing Eyes: PERRL, EOMI Ears, Nose, Mouth, Throat: moist mucous membranes, hearing normal Cardiovascular: regular rate and rhythym, No edema Respiratory: no respiratory distress, rhonchi Gastrointestinal: normoactive bowel sounds, soft, non-tender abdomen Skin: warm Musculoskeletal: generalized weakness Neurologic: AAOx3 Psychiatric: interacting appropriately, not anxious, not encephalopathic Lymph, Heme, Immunologic: No petechiae ICD10 Worksheet Patient Problems: Problems Problem Status Onset Acute respiratory failure Acute Chronic Disease Mgmt/Transitional care Acute
--- NOTE | 2018-07-27 16:41 | ASMTCMCOM ---
CM Note CM Note Notes: 07/25/2018 Case Management Note: Met w/pt and Precious [phone] and stepdaughter Jo to discuss d/c needs. PT recommending home care. Pt agreeable. Provided home care agency list. Pt requested [facility]. Notified [facility] on phone and [employer]. Transitional Care to follow pt. Case Management d/c poc: [facility] RN PT 07/27/18 CM Note: Still on track for d/c home with [facility], RN and PT. Patient requiring high O2 needs. D/C date unclear at this time. CM will continue to follow. Date Signed: 07/27/2018 04:41 PM Electronically Signed By:Cami Dean RN
--- NOTE | 2018-07-27 17:35 | SOAPPROG ---
SOAP Progress Note Assessment/Plan: Assessment: Interstitial lung disease. Presumably IPF. Clear worsening on CT scan compared to 2017. Spirometry is down but only by 450 cc. Pirfenidone was stopped mid May secondary to weight loss and GI side effects. OFEV was not started (hard drug to start, need to work with drug company and insurance, need prior approval, etc.). Steroids may be of benefit, prednisone at 60 started 07/25. Got Solu-Medrol on an admission. COPD. Presumably he has this along with some emphysema in addition to honeycombing from ILD. However, this is difficult to document and on his pulmonary function studies in January he had no obstruction and no reversibility. A COPD exacerbation could be playing a role. On bronchodilator therapies. These will be continued. Prednisone for ILD may have benefit as well for his COPD. Pulmonary hypertension with right ventricular dysfunction. This is secondary to his underlying pulmonary disease. Right ventricular systolic pressure at 65. This certainly is playing a role in his dyspnea as well as hypoxemia. Maintaining oxygen saturations 88% or above is indicated. There is no evidence of pulmonary embolic disease on CTA this admission. Hypoxemia/dyspnea. Secondary to issues as outlined above. Type 2 diabetes. On metformin. Glucoses stable so far on steroids. Edema: Improved with Lasix, resolved. No evidence of DVT. Secondary pulmonary hypertension certainly playing a role in edema as well. Plan: Continue prednisone at 60 mg per day. Continue oxygen at rest and with sleep and exertion. Continue duo nebs. Continue levofloxacin orally for a 5-7 day total course. Continue lasix at 40 mg orally per day. Continue ambulation and bronchopulmonary therapies. Follow laboratory. Will continue to follow with you. Not ready for discharge tomorrow secondary to high oxygen requirements. However, these requirements may not come down much initially. For outpatient follow-up with Dr. Gamez post discharge. Subjective: About the same. Does well at rest. Desats with exertional activities despite oxygen at 6 - 8 L. He does not feel particularly short of breath with this however Objective: Vital Signs Temp Pulse Resp BP Pulse Ox 36.4 C 75 16 144/89 H 95 07/27/18 16:00 07/27/18 16:34 07/27/18 16:34 07/27/18 16:00 07/27/18 16:34 Laboratory Results 07/27/18 10:40 07/27/18 03:02 07/26/18 07/27/18 07/28/18 05:59 05:59 05:59 Intake Total 1110 1240 500 Output Total 1955 3500 1025 Balance -847 -8048 -525 PT 13.3 SEC (12.0-15.0) 07/23/18 15:15 INR 1.05 (0.83-1.16) 07/23/18 15:15 Laboratory Tests 07/27/18 07/27/18 07/27/18 03:02 07:18 11:07 POC Glucose 66 L 128 H NT-Pro-B Natriuret Pep 4020 H 07/27/18 17:11 POC Glucose 122 H NT-Pro-B Natriuret Pep Physical Exam - Physical Exam General Appearance: alert, no apparent distress, thin EENT: other (Nasal cannula in place at 6 L currently: Saturation 95%) Neck: normal inspection (With some jugular venous distension) Respiratory: lungs clear (Anteriorly), decreased breath sounds (Bilaterally), rales (Fine rales present at the bases, right greater than left), No rhonchi, No wheezing Cardiac/Chest: regular rate, rhythm, systolic murmur, other (Increased P2), No gallop Abdomen: normal bowel sounds, non-tender, soft Skin: normal color, warm/dry Extremities: No pedal edema Neuro/Psych: no motor/sensory deficits, No cognition abnormalities ICD10 Worksheet Patient Problems: Problems Problem Status Onset Chronic Disease [facility]/Transitional care Acute Acute respiratory failure Acute
[2018-07-27] MEDS: PRAVASTATIN SODIUM 40 MG TAB PO SCH (20:05)
[2018-07-27] MEDS: ASPIRIN EC 81 MG TAB PO SCH (20:06)
[2018-07-28] MEDS: IPRATROPIUM/ALBUTEROL 3 ML DEYVIAL IH SCH ×4 (05:20→21:25)
[2018-07-28] MEDS: INSULIN LISPRO 100 UNIT/ML SC SCH ×3 (09:39→19:27)
[2018-07-28] MEDS: PRESERVISION AREDS2 FORMULA EYE VIT 1 EACH PO SCH ×2 (09:42→20:03)
[2018-07-28] MEDS: FUROSEMIDE 40 MG TAB PO SCH (09:42)
[2018-07-28] MEDS: ENOXAPARIN 40 MG/0.4 ML SYR SC SCH (09:42)
[2018-07-28] MEDS: predniSONE 20 MG TAB PO SCH (09:42)
--- NOTE | 2018-07-28 11:56 | HOSPPROG ---
Hospitalist Progress Note Assessment/Plan: * Acute on Chronic respiratory failure -acute IFP flare vs. other (PNA vs. CHF) -was 85% on 10L on admission, now improving to 6L * IPF - possible acute flare -Prednisone 60 mg qd (started on 07/25) -off Esbriet, did not start Ofev as recommended -d/w Dr. Dias - pulmonary is following * COPD exacerbation -steroids, nebs * Acute on chronic diastolic CHF -now on PO Lasix 40 mg qd, net negative 1L in past 24 hours, weight decreased 63.6 kg to 60.1 kg -TTE from this admission showing normal LVEF, Grade 1 Diastolic Dysfunction, RV overload * Possible PNA -Levaquin stopped on 07/26 due to negative Procalcitonin * Elevated lactate -may have been due to hypoxia * DM II Subjective: Patient reports feeling less SOB today, had coughing episode this morning Objective: Vital Signs Temp Pulse Resp BP Pulse Ox 36.6 C 84 20 108/63 91 L 07/28/18 10:57 07/28/18 10:57 07/28/18 10:57 07/28/18 10:57 07/28/18 10:57 Laboratory Results 07/27/18 10:40 07/28/18 03:10 07/27/18 07/28/18 07/29/18 05:59 05:59 06:59 Intake Total 1240 800 Output Total 3500 1800 350 Balance -2260 -1000 -350 PT 13.3 SEC (12.0-15.0) 07/23/18 15:15 INR 1.05 (0.83-1.16) 07/23/18 15:15 - Physical Exam Constitutional: chronically ill appearing Eyes: PERRL Ears, Nose, Mouth, Throat: moist mucous membranes Cardiovascular: regular rate and rhythym Respiratory: no respiratory distress, reduced air movement Gastrointestinal: soft, non-tender abdomen Skin: warm Musculoskeletal: full muscle strength Neurologic: AAOx3 Psychiatric: interacting appropriately ICD10 Worksheet Patient Problems: Problems Problem Status Onset Acute respiratory failure Acute Chronic Disease Mgmt/Transitional care Acute
[2018-07-28] MEDS: BENZONATATE 100 MG CAP PO PRN ×2 (12:21→22:15)
--- NOTE | 2018-07-28 15:55 | SOAPPROG ---
SOAP Progress Note Assessment/Plan: Assessment: Interstitial lung disease. Presumably IPF. Clear worsening on CT scan compared to 2017. Spirometry is down but only by 450 cc. Pirfenidone was stopped mid May secondary to weight loss and GI side effects. OFEV was not started (hard drug to start, need to work with drug company and insurance, need prior approval, etc.). Steroids may be of benefit: prednisone at 60 started 07/25. Got Solu-Medrol on an admission. COPD. Presumably he has this along with some emphysema in addition to honeycombing from ILD. However, this is difficult to document and on his pulmonary function studies in January he had no obstruction and no reversibility. A COPD exacerbation could be playing a role. On bronchodilator therapies. These will be continued. Finished Levaquin. Prednisone for ILD may have benefit as well for his COPD. Pulmonary hypertension with right ventricular dysfunction. This is secondary to his underlying pulmonary disease. Right ventricular systolic pressure estimated at 65. This certainly is playing a role in his dyspnea as well as hypoxemia. Maintaining oxygen saturations 88% or above is indicated. There is no evidence of pulmonary embolic disease on CTA this admission. Hypoxemia/dyspnea. Secondary to issues as outlined above. Type 2 diabetes. On metformin. Glucoses remained stable on steroids. Edema: Improved with Lasix, resolved. No evidence of DVT. Secondary pulmonary hypertension certainly playing a role in edema as well. Plan: Continue prednisone at 60 mg per day. Continue oxygen at rest and with sleep and exertion. Continue duo nebs. Continue lasix at 40 mg orally per day. Continue ambulation and bronchopulmonary therapies. Add potassium. Follow laboratory. Will continue to follow with you. From my perspective he is close to discharge at this point. I do not think there are any further acute issues to treat. Prednisone may slowly improve some of his lung function however he is going to continue to need oxygen 12/12. I think his pulmonary status is stable and he is doing relatively well. He has portable oxygen at home. Would continue prednisone at 60 on discharge along with Lasix at 40 mg, potassium at 20. For outpatient follow-up with Dr. Gamez post discharge. Subjective: Unchanged over the last couple a days. Feels pretty well. Notices saturations dropping with exertion but has little in the way of symptoms with this. No chest pain. No cough, no mucus. Objective: Vital Signs Temp Pulse Resp BP Pulse Ox 36.5 C 79 20 115/72 96 07/28/18 15:31 07/28/18 15:31 07/28/18 15:31 07/28/18 15:31 07/28/18 15:31 Laboratory Results 07/27/18 10:40 07/28/18 03:10 07/27/18 07/28/18 07/29/18 05:59 05:59 06:59 Intake Total 1240 800 Output Total 3500 1800 1125 Balance -2260 -1000 -1125 PT 13.3 SEC (12.0-15.0) 07/23/18 15:15 INR 1.05 (0.83-1.16) 07/23/18 15:15 Physical Exam - Physical Exam General Appearance: alert, no apparent distress EENT: other (Oxygen in place at 4-6 L) Neck: normal inspection (No JVD) Respiratory: lungs clear (Anteriorly), decreased breath sounds Cardiac/Chest: regular rate, rhythm, systolic murmur, other (Increased P2), No gallop Abdomen: normal bowel sounds, non-tender, soft Skin: normal color, warm/dry Extremities: No pedal edema Neuro/Psych: no motor/sensory deficits, No cognition abnormalities ICD10 Worksheet Patient Problems: Problems Problem Status Onset Chronic Disease Mgmt/Transitional care Acute Acute respiratory failure Acute
[2018-07-28] MEDS: ASPIRIN EC 81 MG TAB PO SCH (20:03)
[2018-07-28] MEDS: PRAVASTATIN SODIUM 40 MG TAB PO SCH (20:03)
[2018-07-29] MEDS: IPRATROPIUM/ALBUTEROL 3 ML DEYVIAL IH SCH ×4 (05:41→20:26)
[2018-07-29] MEDS: INSULIN LISPRO 100 UNIT/ML SC SCH ×3 (08:06→19:26)
[2018-07-29] MEDS: POTASSIUM CL 20 MEQ TAB PO SCH (08:43)
[2018-07-29] MEDS: BENZONATATE 100 MG CAP PO PRN (08:43)
[2018-07-29] MEDS: FUROSEMIDE 40 MG TAB PO SCH (08:43)
[2018-07-29] MEDS: ENOXAPARIN 40 MG/0.4 ML SYR SC SCH (08:43)
[2018-07-29] MEDS: predniSONE 20 MG TAB PO SCH (08:43)
[2018-07-29] MEDS: PRESERVISION AREDS2 FORMULA EYE VIT 1 EACH PO SCH ×2 (08:43→20:26)
--- NOTE | 2018-07-29 12:27 | HOSPPROG ---
Hospitalist Progress Note Assessment/Plan: * Acute on Chronic respiratory failure -acute IFP flare vs. other (PNA vs. CHF) -was 85% on 10L on admission, now improving to 6L * IPF - possible acute flare -Prednisone 60 mg qd (started on 07/25) -off Esbriet, did not start Ofev as recommended -Pulmonary is following * COPD exacerbation -steroids, nebs * Acute on chronic diastolic CHF -now on PO Lasix 40 mg qd, net negative ~1L in past 24 hours, weight decreased 63.6 kg to 60.1 kg since admission -TTE from this admission showing normal LVEF, Grade 1 Diastolic Dysfunction, RV overload * Possible PNA -Levaquin stopped on 07/26 due to negative Procalcitonin * Elevated lactate -may have been due to hypoxia * DM II Dispo: Likely tomorrow if 02 requirements continue to improve Subjective: Pt reports continued improving breathing this AM Objective: Vital Signs Temp Pulse Resp BP Pulse Ox 36.3 C 85 20 144/86 H 94 07/29/18 07:52 07/29/18 11:41 07/29/18 11:41 07/29/18 07:52 07/29/18 11:41 Laboratory Results 07/27/18 10:40 07/29/18 03:14 07/28/18 07/29/18 07/30/18 04:59 05:59 05:59 Intake Total 240 Output Total 575 Balance -335 PT 13.3 SEC (12.0-15.0) 07/23/18 15:15 INR 1.05 (0.83-1.16) 07/23/18 15:15 - Physical Exam Constitutional: chronically ill appearing Eyes: PERRL Ears, Nose, Mouth, Throat: moist mucous membranes Cardiovascular: regular rate and rhythym Respiratory: no respiratory distress, reduced air movement Gastrointestinal: soft, non-tender abdomen Skin: warm Neurologic: AAOx3 Psychiatric: interacting appropriately ICD10 Worksheet Patient Problems: Problems Problem Status Onset Acute respiratory failure Acute Chronic Disease Mgmt/Transitional care Acute
--- NOTE | 2018-07-29 15:09 | SOAPPROG ---
SOAP Progress Note Assessment/Plan: Assessment: Interstitial lung disease. Presumably IPF. Clear worsening on CT scan compared to 2017. Spirometry is down but only by 450 cc. Pirfenidone was stopped mid May secondary to weight loss and GI side effects. OFEV was not started (hard drug to start, need to work with drug company and insurance, need prior approval, etc.). Steroids do seem to be of benefit: prednisone at 60 started 07/25. Got Solu-Medrol on an admission. COPD. Presumably he has this along with some emphysema in addition to honeycombing from ILD. However, this is difficult to document and on his pulmonary function studies in January he had no obstruction and no reversibility. A COPD exacerbation could be playing a role. On bronchodilator therapies. These will be continued. Finished Levaquin. Prednisone for ILD may have benefit as well for his COPD. Pulmonary hypertension with right ventricular dysfunction. This is secondary to his underlying pulmonary disease. Right ventricular systolic pressure estimated at 65. This certainly is playing a role in his dyspnea as well as hypoxemia. Maintaining oxygen saturations 88% or above is indicated. There is no evidence of pulmonary embolic disease on CTA this admission. On Lasix. Hypoxemia/dyspnea on exertion. Secondary to issues as outlined above. Slowly improving. Down to 3 L at rest, 4-6 with ambulation. Desaturations with ambulation much better. Type 2 diabetes. On metformin. Glucoses remained stable on steroids. Edema: Improved with Lasix, resolved. No evidence of DVT. Secondary pulmonary hypertension/cor pulmonale playing a role in edema. On Lasix at 40 mg per day orally. BUN starting to rise. If this continues will need to back off to Lasix 20 mg per day. Plan: Continue prednisone at 60 mg per day. Continue oxygen at rest and with sleep and exertion. Continue duo nebs. Continue lasix at 40 mg orally per day. May need to decrease to 20 on discharge if BUN rising. Continue ambulation and bronchopulmonary therapies. Continue potassium. Follow laboratory. From my perspective he can be discharged tomorrow. I do not think there are any further acute issues to treat. Prednisone may continue to slowly improve lung function and hypoxemia, however he is going to continue to need oxygen 24/ 7 for now. He has portable oxygen at home. Would continue prednisone at 60 on discharge along with Lasix at 40 mg (or 20) potassium at 20. He will follow up with Dr. Gamez as an outpatient. I will have Dr. Gamez touch bases with him tomorrow prior to discharge. Subjective: Feeling better. No cough or mucus, no chest pain. Oxygen requirements have improved: Down to 3 L at rest, 4-6 with exertion Objective: Vital Signs Temp Pulse Resp BP Pulse Ox 36.8 C 84 18 115/78 95 07/29/18 12:00 07/29/18 12:00 07/29/18 12:00 07/29/18 12:00 07/29/18 12:00 Laboratory Results 07/27/18 10:40 07/29/18 03:14 07/28/18 07/29/18 07/30/18 04:59 05:59 05:59 Intake Total 240 Output Total 575 Balance -335 PT 13.3 SEC (12.0-15.0) 07/23/18 15:15 INR 1.05 (0.83-1.16) 07/23/18 15:15 Physical Exam - Physical Exam General Appearance: alert, no apparent distress EENT: other (Nasal cannula oxygen in place) Neck: normal inspection (No obvious JVD) Respiratory: lungs clear (Anteriorly), decreased breath sounds (Bilaterally), rales (Fine rales present at the bases), No wheezing Cardiac/Chest: regular rate, rhythm, systolic murmur, other (Increased P2), No gallop Abdomen: normal bowel sounds, non-tender, soft Skin: normal color, warm/dry Extremities: No pedal edema Neuro/Psych: no motor/sensory deficits, No cognition abnormalities ICD10 Worksheet Patient Problems: Problems Problem Status Onset Chronic Disease [facility]/Transitional care Acute Acute respiratory failure Acute
[2018-07-29] MEDS: ASPIRIN EC 81 MG TAB PO SCH (20:26)
[2018-07-29] MEDS: PRAVASTATIN SODIUM 40 MG TAB PO SCH (20:26)
[2018-07-30] MEDS: IPRATROPIUM/ALBUTEROL 3 ML DEYVIAL IH SCH ×2 (05:17→10:06)
[2018-07-30] MEDS: INSULIN LISPRO 100 UNIT/ML SC SCH ×2 (07:45→12:56)
[2018-07-30] MEDS: POTASSIUM CL 20 MEQ TAB PO SCH (08:07)
[2018-07-30] MEDS: FUROSEMIDE 40 MG TAB PO SCH (08:07)
[2018-07-30] MEDS: PRESERVISION AREDS2 FORMULA EYE VIT 1 EACH PO SCH (08:07)
[2018-07-30] MEDS: predniSONE 20 MG TAB PO SCH (08:07)
[2018-07-30] MEDS: ENOXAPARIN 40 MG/0.4 ML SYR SC SCH (08:07)
[2018-07-30] MEDS ORDERED: FUROSEMIDE 40 MG TAB PO SCH (08:09)
[2018-07-30 11:16] VITALS: BP 129/82
--- NOTE | 2018-07-30 11:39 | ASMTLACE ---
LACE Length of stay for Answers: 7-13 days current admission Comorbidities - select Answers: Chronic pulmonary disease all that apply Diabetes (uncontrolled or controlled) Other Notes: Pulmonary fibrosis; HLD # of Emergency department Answers: 1-2 visits in the last 6 months Score: 10 Date Signed: 07/30/2018 11:39 AM Electronically Signed By:Rosibel Singh RN
--- NOTE | 2018-07-30 11:40 | ASMTDCNOTE ---
Case Management Discharge Discharge Order Complete? Answers: Yes Patient to Obtain Answers: Independently Medications Transportation Arranged Answers: Family/Friends Faxed Final Orders Answers: Yes Family Notified Answers: Yes Discharge Comments Notes: Patient discharged home. [facility] to follow for RN case. Date Signed: 07/30/2018 11:40 AM Electronically Signed By:Rosibel Singh RN
--- NOTE | 2018-07-30 11:55 | PDHOMEO2F ---
Home Oxygen Face to Face Home Orders: I certify that a physician or a nurse practitioner or physician's certified pathology assistant has had a [id number] encounter with this patient on the date of this order due to the diagnosis listed, which relates to the primary reason the patient requires home oxygen. Alternative treatments have been tried, or considered, and deemed ineffective. It is anticipated that supplemental oxygen will result in improvement with treatment. Home oxygen qualifying diagnosis: Interstitial Lung Disease SpO2 on room air (%): 68 Frequency of home oxygen needed: continuous Home oxygen liters per minute: 2 Home oxygen delivery device: nasal cannula Concentrator: Yes E-tanks for mobility and back up: Yes If ordering portable O2, is the patient mobile in the home?: Yes I certify that, based on these findings, the home oxygen is medically necessary for this patient for the following length of time. Length of time home oxygen needed: 99 years
--- NOTE | 2018-07-30 11:56 | PDIAF ---
- Diagnosis Diagnosis: ILD Exacerbation Code Status: Full Code - Medication Management Discharge Medications: electronically signed and located in the Home Medication List. - Orders Services needed: Home Care, Registered Nurse Home Care Face to Face: I certify that this patient was under my care and that I had the required [id number] encounter meeting the encounter requirements on the discharge day. My findings support the fact that the patient is homebound as defined in Home Care Face to Face Continued: CMS Chapter 7 Medicare Benefits Manual 30.1.1 , The condition of the patient is such that there exists a normal inability to leave home and consequently, leaving home would require a considerable and taxing effort. Isolation Type: None - Follow Up Care Current Providers and Referrals: Johnny Ortiz MD [Primary Care Provider] - 07/31/18 1:00 pm
--- NOTE | 2018-07-30 15:14 | PDDCSUM ---
Discharge Summary Discharge Summary: Date of Admission: 07/23/2018 Date of Discharge: 07/30/2018 Consults: Cardiology, Pulmonology Procedures: CT Chest, TTE Followup: Pulmonology, PCP, Cardiology Hospital Course Problem List: * Acute on Chronic respiratory failure -2/2 to likely acute IPF flare -was 85% on 10L on admission, improved to 2L upon discharge * IPF - possible acute flare -Prednisone 60 mg qd (started on 07/25), Pulmonology recommends discharging on this dose and will have patient f/u with them, Dr. Gamez is outpatient chassis driver, to decide when to taper -off Esbriet, did not start Ofev as recommended, f/u with Pulm as OP as above * COPD exacerbation -steroids, nebs * Acute on chronic diastolic CHF - Was on IV diuretics initially, then transitioned to PO Lasix 20 mg qd upon discharge, weight decreased 63.6 kg to 60.1 kg since admission -TTE from this admission showing normal LVEF, Grade 1 Diastolic Dysfunction, RV overload * Possible PNA -Levaquin stopped on 07/26 due to negative Procalcitonin * Elevated lactate -may have been due to hypoxia * DM II Time spent on discharge was >35 minutes with >50% of time spent on patient education and counseling
--- NOTE | 2018-07-31 09:21 | ASDISCHSUM ---
Discharge Information Plan Status:Home with Home Health Medically Cleared to Leave:07/30/2018 Discharge Date:07/30/2018 03:06 PM D/C Disposition:Home Health Service [facility] D/C Disposition:Home, Routine, Self-Care Projected Discharge Date:07/25/2018 11:00 AM Transportation at D/C: Discharge Delay Reason: Follow-Up Date:07/25/2018 11:00 AM Discharge Slot: Final Diagnosis: Placement Information Referral Type:*Home Health Care Services Referral ID:[id number] Provider Name:[facility] [address] [place] [address] Address 2: City:[place] Selection Factors: State:[place] Patient Contact Information Contact Name:TYLOR Relationship: Address:[address] [place] Work Phone: [facility] Phone: [facility]/Zip Code:[place] [address] Email: Financial Information Financial Class:Medicare Primary Plan Desc:MEDICARE INPATIENT Primary Plan Number:[id number] Secondary Plan Desc: Secondary Plan Number: Assessment Information LACE LACE Length of stay for Answers: 7-13 days current admission Comorbidities - select Answers: Chronic pulmonary disease all that apply Diabetes (uncontrolled or controlled) Other Notes: Pulmonary fibrosis; HLD # of Emergency department Answers: 1-2 visits in the last 6 months Score: 10 Date Signed: 07/30/2018 11:39 AM Electronically Signed By:Rosibel Singh RN [facility] CM Progress Note CM Note CM Note Notes: Pt was admitted with hypoxia, possible CHF, Anastasia CARTER. PT/OT evals pending. Cardiology following. Pt lives with his in [place]. CM will follow for any d/c needs. D/C plan: TBD Date Signed: 07/24/2018 12:29 PM Electronically Signed By:YANE Cage [facility] CM Progress Note CM Note CM Note Notes: 07/25/2018 Case Management Note Met w/pt and Precious [phone] and denae Osorio to discuss d/c needs. PT recommending home care. Pt agreeable. Provided home care agency list. Pt requested [facility]. Notified [facility] on phone and [employer]scripts. Transitional Care to follow pt. Case Management d/c poc: [facility] RN PT Case Management to follow. Date Signed: 07/25/2018 12:44 PM Electronically Signed By:Vanessa Oro RN [facility] CM Progress Note CM Note CM Note Notes: 07/25/2018 Case Management Note: Met w/pt and Precious [phone] and denae Osorio to discuss d/c needs. PT recommending home care. Pt agreeable. Provided home care agency list. Pt requested [facility]. Notified [facility] on phone and [employer]. Transitional Care to follow pt. Case Management d/c poc: CARLENE RN PT 07/27/18 CM Note: Still on track for d/c home with [facility], RN and PT. Patient requiring high O2 needs. D/C date unclear at this time. CM will continue to follow. Date Signed: 07/27/2018 04:41 PM Electronically Signed By:Cami Dean RN Case Management Discharge Plan Note Case Management Discharge Discharge Order Complete? Answers: Yes Patient to Obtain Answers: Independently Medications Transportation Arranged Answers: Family/Friends Faxed Final Orders Answers: Yes Family Notified Answers: Yes Discharge Comments Notes: Patient discharged home. [facility] to follow for RN case. Date Signed: 07/30/2018 11:40 AM Electronically Signed By:Rosibel Singh RN Intervention Information Intervention Type:*Incorrect Registration Date of Service:07/23/2018 12:04 PM Patient Type:Observation Staff Member:SHEN Lira, Thelma Hours: Discipline: Severity: Comment: Intervention Type:*IM-Signed Date of Service:07/30/2018 11:35 AM Patient Type:Inpatient Staff Member:Irma Pink Hours: Discipline: Severity: Comment:
== END 2018-07-30 15:06 | disposition home health service (06) | DRG 196 ==
LOC: OBSVTOIN 17:29 → F2W 20:33
PROVIDERS: ADMIT Internal Medicine; ATTEND Internal Medicine
DX: J84.112 Idiopathic pulmonary fibrosis (principal); J96.20 Acute and chronic respiratory failure, unspecified whether with hypoxia or hypercapnia; I50.33 Acute on chronic diastolic (congestive) heart failure; J18.9 Pneumonia, unspecified organism; J44.1 Chronic obstructive pulmonary disease with (acute) exacerbation; E11.9 Type 2 diabetes mellitus without complications; Z87.891 Personal history of nicotine dependence
CPT/HCPCS: 84484-ER; 96365; 97110-GP; 97116-GP; 97161-GP; 97165-GO; 97530-GO; 97535-GO; J1650; J1815; J1940; J1956; J2930; J7512; Q9967